=== PATIENT | male | born 1940 | race Caucasian/White ===

== ENCOUNTER → 2018-04-30 | Outpatient (CLI) | payer MEDICARE ==
--- NOTE | 2018-04-30 11:20 | CT ---
EXAMINATION TYPE: CT sinus wo con DATE OF EXAM: 04/30/2018 COMPARISON: NONE HISTORY: Chronic sinusitis per order. Sinus issues for [address] DLP: 588 mGycm. Automated Exposure Control for Dose Reduction was Utilized. TECHNIQUE: CT scan of the sinuses is performed without contrast, axial images are obtained, coronal r eformatted images are also reviewed. FINDINGS: There is asymmetric diminished size to the left maxillary sinus. No suspicious opacificatio n or air-fluid levels are seen in the sinuses bilaterally. The ostiomeatal complex is patent bilatera lly on the coronal images. There is slightly altered superior course on the left likely due to asymme tric small size of the left maxillary sinus Visualized portion of mastoid air cells show no abnormal opacification. Patchy soft tissue density ri ght external auditory canal axial image 12 is felt to reflect cerumen. There is poor visualization of right lens suggesting cataract. Symmetric enophthalmos is noted. Visualized portion of brain parench yma shows mild diffuse age-related cerebral atrophy and chronic small vessel ischemic change. There i s mild vascular calcification of distal internal carotid arteries bilaterally. There is symmetric fla ttening or degenerative change of the bilateral mandibular condyles at TMJs. IMPRESSION: No significant acute or chronic paranasal sinus disease.
== END | disposition home or self-care (01) ==
LOC: RADCTMAIN 10:42
PROVIDERS: ATTEND Family Medicine
DX: J32.9 Chronic sinusitis, unspecified (principal)
CPT/HCPCS: 70486

== ENCOUNTER 2018-07-12 10:33 | Day surgery (SDC) | payer MEDICARE ==
[2018-07-09 09:28] VITALS: BMI 24.7
[~2018-07-12 10:33] MED LIST: LACTATED RINGERS 1,000 ML IV SCH; LIDOCAINE 1% 20 ML VIAL (10MG/ML) FOR IV START INTRADERMA PRN
[2018-07-12 11:17] VITALS: TEMP 97.5
[2018-07-12] MEDS ORDERED: PROPOFOL 10 MG/ML 20 ML VIAL IV ONE (12:28)
--- NOTE | 2018-07-12 12:58 | P.PCN ---
Date of Procedure: 07/12/18 Procedure(s) Performed: Procedure: Total colonoscopy. Preoperative diagnosis: Positive cologuard test. Postoperative diagnosis: 1. Sigmoid diverticulosis with no evidence of acute diverticulitis or strictures. 2. Low-grade internal hemorrhoids without spontaneous bleeding. 3. No polyps or tumors seen. Preparation: HalfLytely prep. Sedation: Was provided by anesthesia Brief clinical history: The patient is a 77-year-old male who is scheduled for this evaluation because of positive cologuard test. The patient had prior colonoscopy many years ago and does not have any specific abdominal symptoms or overt bleeding at this time. Procedure: With the patient on his left lateral decubitus position and after informed consent and adequate sedation, the perianal area was inspected and it did not show any fissures or fistulas. There were no masses felt on digital rectal examination. The Olympus CFH 190L video colonoscope was then inserted in the rectum in the usual fashion and advanced to the cecum. There were several diverticular orifices seen scattered in the distal sigmoid but I saw no evidence of acute diverticulitis or strictures. The mucosa appeared healthy. No polyps or tumors were seen. I retroflexed the endoscope in the rectum before the endoscope was withdrawn. Low-grade internal hemorrhoids were noted with no evidence of spontaneous bleeding. The patient tolerated the procedure well. Plan: The patient was reassured. Discussed dietary measures and local care for hemorrhoids. Further plans based on his course. In the absence of upper GI complaints or anemia, I did not recommend upper GI workup at this time and this can be kept as a contingency based on his course. He will follow up with you as planned.
[2018-07-12 13:28] VITALS: BP 160/94; PULSE 86; RESP 16
== END 2018-07-12 13:41 | disposition home or self-care (01) ==
LOC: ORWHC2ENDO 10:33
DX: K57.30 Diverticulosis of large intestine without perforation or abscess without bleeding (principal); K64.8 Other hemorrhoids; R19.5 Other fecal abnormalities; H91.90 Unspecified hearing loss, unspecified ear; Z87.891 Personal history of nicotine dependence
CPT/HCPCS: 45378; J2704